=== PATIENT | female | born 1995 ===

== ENCOUNTER 2017-12-05 23:04 | Inpatient (IN) | payer OTHER ==
[~2017-12-05] VITALS: Ht 160 cm; Wt 97.3 kg
[2017-12-05 23:22] VITALS: BP 134/88; PULSE 69; TEMP 98.1
[2017-12-05] MEDS ORDERED: CLARITIN 1010 MG/TAB PO (23:28)
[2017-12-05] MEDS ORDERED: BENADRYL50 MG PO (23:29)
[2017-12-05] MEDS ORDERED: TYLENOL 325MG325 MG PO (23:30)
[2017-12-06] VITALS (39 sets, daily range): BP systolic 104–139; BP diastolic 56–96; PULSE 60–101; TEMP 98–98.9
[2017-12-06 01:18] LABS: BASO % 0.3 % (0.0-2.0); EOS # 0.1 (0.0-0.7); GRAN # 5.8 (1.4-6.5); GRAN % 60.4 % (42.2-75.2); HEMOGLOBIN 11.7 g/dl (12.5-16.0); LYMPH # 2.5 (1.2-3.4); LYMPH % 26.1 % (20.0-51.0); MEAN CELL VOLUME 91 fl (80.0-100.0); MEAN CORPUSCULAR HEMOGLOBIN 32 pg (27.0-31.0); MEAN CORPUSCULAR HGB CONC 35 g/dl (33.0-37.0); MEAN PLATELET VOLUME 10.8 fl (7.4-10.4); MONO # 1.1 (0.1-0.6); PLATELET COUNT 219 K/mm3 (130-400); RED BLOOD COUNT 3.68 M/mm3 (4.10-5.30); REDCELL DISTRIBUTION WIDTH-CV 12.3 % (11.5-14.5)
[2017-12-06 01:21] LABS: HEMATOCRIT 33.4 % (37.0-47.0)
[2017-12-07 06:50] VITALS: BP 120/70; PULSE 88; TEMP 98
[2017-12-07] MEDS ORDERED: PERCOCET 325 MG1 TA2 PO (08:51)
[2017-12-07] MEDS ORDERED: MOTRIN 600600 MG/TAB PO (08:51)
[2017-12-07 20:00] VITALS: BP 120/67; PULSE 76; TEMP 97.5
[2017-12-08 08:30] VITALS: BP 116/58; PULSE 81; TEMP 97.8
== END 2017-12-08 12:00 | disposition home or self-care (01) | DRG 775 ==
LOC: LDRO 23:04 → LDR 12-06 00:37 → OB 12-06 00:37
PROVIDERS: Obstetrics & Gynecology
PROC: 10E0XZZ Delivery of Products of Conception, External Approach (ICD-10-PCS; principal; 2017-12-06)
PROC: 0UQGXZZ Repair Vagina, External Approach (ICD-10-PCS; 2017-12-06)
DX: O71.4 Obstetric high vaginal laceration alone (principal); Z3A.39 39 weeks gestation of pregnancy; Z37.0 Single live birth; Z22.330 Carrier of Group B streptococcus; O99.334 Smoking (tobacco) complicating childbirth
CPT/HCPCS: J0595; J2540; J2590; J2795; J7120